=== PATIENT | male | born 2005 | race American Indian/Alaskan Native ===

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

== ENCOUNTER 2024-01-20 07:32 | Emergency (ER) | payer OTHER ==
[2024-01-20 07:40] VITALS: BP 128/76; PULSE 121
== END 2024-01-20 08:29 | disposition home or self-care (01) ==
LOC: MW.ED 07:32
DX: F10.129 Alcohol abuse with intoxication, unspecified (principal); F17.210 Nicotine dependence, cigarettes, uncomplicated; Z75.8 Other problems related to medical facilities and other health care; Z88.1 Allergy status to other antibiotic agents; Z91.030 Bee allergy status; Z79.899 Other long term (current) drug therapy; V89.2XXA Person injured in unspecified motor-vehicle accident, traffic, initial encounter
CPT/HCPCS: 99284

== ENCOUNTER 2024-03-08 23:43 | Emergency (ER) | payer OTHER ==
[2024-03-09 00:25] VITALS: BP 127/78; PULSE 78
== END 2024-03-09 00:26 | disposition home or self-care (01) ==
LOC: MW.ED 23:43
DX: S61.012A Laceration without foreign body of left thumb without damage to nail, initial encounter (principal); Z88.1 Allergy status to other antibiotic agents; Z91.030 Bee allergy status; W26.0XXA Contact with knife, initial encounter
CPT/HCPCS: 12001; 99282